=== PATIENT | male | born 1990 | race American Indian/Alaskan Native ===

== ENCOUNTER 2018-11-20 21:29 | Emergency (ER) | payer SELFPAY ==
[2018-11-20] MEDS ORDERED: NACL 0.9% 1000 ML 1,000 ML IV ONE (21:33)
[2018-11-20] MEDS ORDERED: NACL 0.9% 1000 ML 1,000 ML ONE (21:37)
[2018-11-20] MEDS ORDERED: DILAUDID IV ONE ×2 (21:40→23:10)
[2018-11-20] MEDS ORDERED: DILAUDID ONE (21:44)
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
[2018-11-20 21:58] LABS: Hematocrit 42.6 % (35.5-45.6); Hemoglobin 14.4 gm/dl (11.8-15.2); Mean Corpuscular HGB Conc 34 % (32-34); Mean Corpuscular Volume 93 fl (84-94); Platelet Count 206 K/mm3 (140-440); Red Cell Distribution Width 13.5 % (13.2-15.2)
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
[2018-11-20 22:39] LABS: Basophils % (Manual) 0 % (0.0-1.8); Total Cells Counted 100
[2018-11-20 22:40] LABS: RBC Morphology Normal
[2018-11-20 22:59] LABS: Alanine Aminotransferase 17 units/L (7-56); Albumin 4.5 g/dL (3.9-5); BUN/Creatinine Ratio 8; Blood Urea Nitrogen 11 mg/dL (9-20); Calcium 9.7 mg/dL (8.4-10.2); Hemolysis Index 16
[2018-11-20] MEDS ORDERED: ZOFRAN IV ONE (23:22)
[2018-11-20] MEDS ORDERED: ZOFRAN ONE (23:25)
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
[2018-11-21] MEDS ORDERED: ZOFRAN IV ONE (00:55)
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
[2018-11-21 03:02] VITALS: BP 101/69
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
== END 2018-11-21 03:00 | disposition other institution (70) ==
LOC: ED 21:29
DX: S32.029A Unspecified fracture of second lumbar vertebra, initial encounter for closed fracture (principal); S22.31XA Fracture of one rib, right side, initial encounter for closed fracture; S36.898A Other injury of other intra-abdominal organs, initial encounter; X58.XXXA Exposure to other specified factors, initial encounter; Y93.89 Activity, other specified; Y92.89 Other specified places as the place of occurrence of the external cause; Y99.8 Other external cause status
CPT/HCPCS: 36415; 71045; 71250; 72128; 72131; 74177; 80053; 82140; 85007; 85025; 86850; 86900; 86901; 93005; 93010; 96374; 96375; 96376; 99291; 99292; J1170; J2405; J7030; Q9967